=== PATIENT | male | born 1950 | race Caucasian/White ===

== ENCOUNTER 2024-04-07 06:00 | Day surgery (SDC) | payer MEDICARE, OTHER ==
[2024-04-07] MEDS: Polymyxin B/Trimethoprim 10 ML Bottle EYERT SCH (07:18)
[2024-04-07] MEDS: Brimonidine 0.2% Ophth Soln 5 ML Bottle EYERT SCH (07:23)
[2024-04-07] MEDS: Phenylephrine 2.5% Ophth Soln 2 ML Bot EYERT SCH (07:28)
[2024-04-07] MEDS: Tropicamide 1% Ophth Soln 3 ML Bottle EYERT SCH (07:32)
[2024-04-07] MEDS: Tetracaine HCl/PF 0.5% 4 ML Bottle EYEBOTH SCH (08:19)
[2024-04-07] MEDS: Lidocaine 1% PF 2 ML SDV INJECT SCH (08:42)
[2024-04-07] MEDS: Cefuroxime 10 MG/ML SYRINGE EYERT SCH (08:51)
[2024-04-07] MEDS: Pilocarpine 4% Ophth Soln 15 ML Bot EYERT SCH (08:57)
== END 2024-04-07 09:04 | disposition home or self-care (01) ==
LOC: JD.SDS 06:00
PROVIDERS: ATTEND Ophthalmology
DX: E11.36 Type 2 diabetes mellitus with diabetic cataract (principal); H25.813 Combined forms of age-related cataract, bilateral; I10 Essential (primary) hypertension; E78.2 Mixed hyperlipidemia; F17.200 Nicotine dependence, unspecified, uncomplicated; Z79.84 Long term (current) use of oral hypoglycemic drugs; Z79.899 Other long term (current) drug therapy
CPT/HCPCS: 66984; A9270; J0697; J3490

== ENCOUNTER 2024-05-05 07:15 | Day surgery (SDC) | payer MEDICARE, OTHER ==
[2024-05-05] MEDS: Polymyxin B/Trimethoprim 10 ML Bottle EYELF SCH (08:03)
[2024-05-05] MEDS: Brimonidine 0.2% Ophth Soln 5 ML Bottle EYELF SCH (08:08)
[2024-05-05] MEDS: Phenylephrine 2.5% Ophth Soln 2 ML Bot EYELF SCH (08:12)
[2024-05-05] MEDS: Tropicamide 1% Ophth Soln 3 ML Bottle EYELF SCH (08:16)
[2024-05-05] MEDS: Tetracaine HCl/PF 0.5% 4 ML Bottle EYEBOTH SCH (08:51)
[2024-05-05] MEDS: Lidocaine 1% PF 2 ML SDV INJECT SCH (09:03)
[2024-05-05] MEDS: Cefuroxime 10 MG/ML SYRINGE EYELF SCH (09:16)
[2024-05-05] MEDS: Pilocarpine 4% Ophth Soln 15 ML Bot EYELF SCH (09:16)
== END 2024-05-05 09:26 | disposition home or self-care (01) ==
LOC: JD.SDS 07:15
PROVIDERS: ATTEND Ophthalmology
DX: E11.36 Type 2 diabetes mellitus with diabetic cataract (principal); H25.812 Combined forms of age-related cataract, left eye; H52.31 Anisometropia; H43.812 Vitreous degeneration, left eye; H18.413 Arcus senilis, bilateral; H02.831 Dermatochalasis of right upper eyelid; H02.834 Dermatochalasis of left upper eyelid; H57.813 Brow ptosis, bilateral; H16.103 Unspecified superficial keratitis, bilateral; H16.223 Keratoconjunctivitis sicca, not specified as Sjogren's, bilateral; E78.00 Pure hypercholesterolemia, unspecified; I10 Essential (primary) hypertension; F17.210 Nicotine dependence, cigarettes, uncomplicated; Z79.84 Long term (current) use of oral hypoglycemic drugs; Z79.899 Other long term (current) drug therapy; Z96.1 Presence of intraocular lens
CPT/HCPCS: 66984; A9270; J0697; J3490; V2632

== ENCOUNTER 2024-07-06 13:33 | Observation (INO) | payer OTHER ==
[2024-07-06] MEDS: Furosemide 40 MG/4 ML VIAL IVPUSH ONE (14:28)
[2024-07-06 14:47] LABS: BASOPHILS PERCENT AUTO 0.3 % (0.0-1.0); EOSINOPHILS ABSOLUTE AUTO 0.1 K/mm3 (0.0-0.4); HEMATOCRIT 41.5 % (42.0-52.0); HEMOGLOBIN 14.3 gm/dl (14.0-18.0); IMMATURE GRAN ABSOLUTE AUTO 0.04 K/mm3 (0.00-0.05); IMMATURE GRAN PERCENT AUTO 0.5 % (0.0-0.4); LYMPHOCYTES ABSOLUTE AUTO 1.1 K/mm3 (1.0-4.8); LYMPHOCYTES PERCENT AUTO 12.4 % (24.0-44.0); MEAN CORPUSCULAR HEMOGLOBIN 30.8 pg (28.0-32.0); MEAN CORPUSCULAR HGB CONC 34.5 g/dl (32.0-36.0); MEAN CORPUSCULAR VOLUME 89.4 fl (83.0-99.0); MEAN PLATELET VOLUME 10.4 fl (9.4-12.4); MONOCYTES ABSOLUTE AUTO 0.6 K/mm3 (0.0-0.8); MONOCYTES PERCENT AUTO 6.3 % (0.0-8.0); NEUTROPHILS ABSOLUTE AUTO 7.1 K/mm3 (1.8-7.7); NEUTROPHILS PERCENT AUTO 79.5 % (41.0-71.0); PLATELET COUNT,PLT 247 K/mm3 (150-400); RED BLOOD CELL COUNT 4.64 M/mm3 (4.52-5.90); WHITE BLOOD CELL COUNT,WBC 8.88 K/mm3 (3.9-11.3)
[2024-07-06 15:14] LABS: A/G RATIO 1.3 (1-2); ALBUMIN 3.9 g/dl (3.4-5.0); ANION GAP 17.5 (5-15); BUN/CREATININE RATIO 9.2 (14-18); CALCIUM 9.2 mg/dL (8.5-10.1); CREATININE 1.2 mg/dL (0.7-1.3); EST CRCL DRUG DOSING (CG) 50.21 mL/min
[2024-07-06 15:21] LABS: APPEARANCE,URINE CLEAR (Clear); BILIRUBIN,URINE NEGATIVE (Negative); COLOR,URINE YELLOW (Yellow); GLUCOSE,URINE 2+ (Negative); KETONES,URINE NEGATIVE (Negative); LEUKOCYTE ESTERASE,URINE NEGATIVE (Negative); NITRITE,URINE NEGATIVE (Negative); OCCULT BLOOD,URINE NEGATIVE (Negative); PROTEIN,URINE NEGATIVE (Negative); UROBILINOGEN,URINE 0.2 (0.2-1.0)
[2024-07-06 15:32] LABS: POTASSIUM,K 2.5 mEq/L (3.5-5.1)
[2024-07-06] MEDS: Potassium Chloride 10 MEQ in Premix Bag 1 BAG IV SCH (16:02)
[2024-07-06] MEDS: Potassium Chloride 20 MEQ Tab.ER PO ONE ×2 (16:02→21:53)
[2024-07-06] MEDS: Nicotine 21 MG/24 Hr Patch TRDERM ONE (16:57)
[2024-07-07] MEDS: Potassium Chloride 20 MEQ Tab.ER PO ONE ×2 (03:31→12:34)
[2024-07-07] MEDS: Potassium Chloride 20 MEQ Tab.ER ONE (06:40)
[2024-07-07 08:29] LABS: BASOPHILS PERCENT AUTO 0.2 % (0.0-1.0); EOSINOPHILS ABSOLUTE AUTO 0.1 K/mm3 (0.0-0.4); EOSINOPHILS PERCENT AUTO 1.6 % (0.0-6.0); HEMOGLOBIN 13.5 gm/dl (14.0-18.0); IMMATURE GRAN ABSOLUTE AUTO 0.02 K/mm3 (0.00-0.05); IMMATURE GRAN PERCENT AUTO 0.2 % (0.0-0.4); LYMPHOCYTES ABSOLUTE AUTO 1.6 K/mm3 (1.0-4.8); LYMPHOCYTES PERCENT AUTO 19.2 % (24.0-44.0); MEAN CORPUSCULAR HEMOGLOBIN 30.1 pg (28.0-32.0); MEAN CORPUSCULAR HGB CONC 32.1 g/dl (32.0-36.0); MEAN PLATELET VOLUME 10.6 fl (9.4-12.4); MONOCYTES ABSOLUTE AUTO 0.7 K/mm3 (0.0-0.8); MONOCYTES PERCENT AUTO 8.8 % (0.0-8.0); NEUTROPHILS ABSOLUTE AUTO 5.7 K/mm3 (1.8-7.7); PLATELET COUNT,PLT 242 K/mm3 (150-400); RED BLOOD CELL COUNT 4.48 M/mm3 (4.52-5.90); WHITE BLOOD CELL COUNT,WBC 8.17 K/mm3 (3.9-11.3)
[2024-07-07 08:30] LABS: MEAN CORPUSCULAR VOLUME 93.8 fl (83.0-99.0)
[2024-07-07 08:38] LABS: A/G RATIO 1.3 (1-2); ALBUMIN 3.5 g/dl (3.4-5.0); ANION GAP 13.5 (5-15); BILIRUBIN TOTAL 0.9 mg/dL (0.2-1.0); BUN/CREATININE RATIO 10.9 (14-18); CREATININE 1.1 mg/dL (0.7-1.3); EST CRCL DRUG DOSING (CG) 54.78 mL/min; POTASSIUM,K 3.5 mEq/L (3.5-5.1); PROTEIN TOTAL,TP 6.3 g/dl (6.4-8.2)
[2024-07-07 08:52] LABS: CALCIUM 9.1 mg/dL (8.5-10.1)
[2024-07-07] MEDS: Rosuvastatin 10 MG Tab PO SCH (12:32)
[2024-07-07] MEDS: Furosemide 40 MG/4 ML VIAL IVPUSH ONE (12:32)
[2024-07-07] MEDS: Lisinopril 5 MG Tab PO SCH (12:33)
[2024-07-07] MEDS: Metoprolol Tartrate 25 MG Tab PO ONE (12:34)
[2024-07-07] MEDS ORDERED: Metoprolol Tartrate 25 MG Tab PO SCH (21:00)
== END 2024-07-07 13:30 | disposition home or self-care (01) ==
LOC: JD.ED 13:33 → INTOOBSV 07-07 07:50 → JD.MS 07-07 07:50
PROVIDERS: ADMIT Family Medicine; ATTEND Family Medicine
DX: I11.0 Hypertensive heart disease with heart failure (principal); I50.9 Heart failure, unspecified; E11.9 Type 2 diabetes mellitus without complications; E87.6 Hypokalemia; I25.10 Atherosclerotic heart disease of native coronary artery without angina pectoris; I25.2 Old myocardial infarction; Z95.1 Presence of aortocoronary bypass graft; E78.00 Pure hypercholesterolemia, unspecified; J44.9 Chronic obstructive pulmonary disease, unspecified; F17.210 Nicotine dependence, cigarettes, uncomplicated; Z79.84 Long term (current) use of oral hypoglycemic drugs; Z79.899 Other long term (current) drug therapy
CPT/HCPCS: 36415; 71046; 80053; 81003; 83880; 84484; 85025; 85379; 93005; 96365; 96366; 96375; 96376; 99285; A9270; G0378; J1940; J3480